=== PATIENT | male | born 1940 | race Caucasian/White ===

== ENCOUNTER 2017-11-14 07:05 | Emergency (ER) | payer MEDICARE ==
[2017-11-14 07:32] LABS: #Basophils 0.1 thou/uL (0.0-0.2); %Eosinophils 0.1 % (0.0-10.0); Red Blood Cell (RBC) Count 4.21 mill/uL (4.70-6.10); White Blood Cell (WBC) Count 9.6 thou/uL (4.8-10.8)
[2017-11-14 07:37] LABS: #Lymphocytes 1.5 thou/uL (1.20-3.40); #Monocytes 0.9 thou/uL (0.11-0.59); #Neutrophils 7.1 thou/uL (1.40-6.50); %Basophils 0.6 % (0.0-1.0); %Lymphocytes 15.4 % (21.0-51.0); %Monocytes 9.6 % (0.0-10.0); %Neutrophils 74.3 % (42.0-75.0); Hemoglobin 13.7 g/dL (14.0-18.0); Mean Corpuscular HGB CONC 32.9 g/dL (32.0-36.0); Mean Corpuscular Hemoglobin 32.5 pg (27.0-31.0); Mean Corpuscular Volume 98.8 fL (78.0-98.0); Platelet Count 216 thou/uL (130-400); RBC Distribution Width 12.8 % (11.5-14.5)
[2017-11-14 07:45] LABS: INR-International Normal Ratio 1.2; PTT 29.7 SEC (22.9-36.1); Prothrombin Time 14.9 SEC (12.0-14.7)
[2017-11-14 07:50] LABS: CKMB 4.2 ng/mL (0-6.6); Troponin I 0.019 ng/mL (< 0.028)
[2017-11-14 07:51] LABS: ALT (SGPT) 11 U/L (8-55); AST (SGOT) 21 U/L (5-34); Acetaminophen Less than 6.0 mcg/mL (10.0-30.0); Albumin 3.8 g/dL (3.4-4.8); Alcohol Less than 10 mg/dL (Less than 10); Alkaline Phosphatase 71 U/L (40-150); Anion Gap 19 mmol/L (10-20); BUN (Urea Nitrogen) 15 mg/dL (8.4-25.7); Bilirubin, Total 0.9 mg/dL (0.2-1.2); CK (CPK) 147 U/L (30-200); Calc. Creatinine Clearance 0 mL/min (70-130); Calcium 9.1 mg/dL (7.8-10.44); Carbon Dioxide 23 mmol/L (23-31); Chloride 101 mmol/L (98-107); Estimated GFR-MDRD 69; Globulin 2.8 g/dL (2.4-3.5); Glucose 157 mg/dL (83-110); Potassium 4.5 mmol/L (3.5-5.1); Protein, Total 6.6 g/dL (5.8-8.1); Salicylate Less than 8.0 mg/dL (15.0-30.0); Sodium 138 mmol/L (136-145)
[2017-11-14 08:25] LABS: Bilirubin Small (Negative); Blood, Urine Trace (Negative); Clarity Clear (Clear); Glucose, Urine (Dipstick) Negative (Negative); Leukocyte Negative (Negative); Nitrite Negative (Negative); Protein, Urine (Dipstick) Trace mg/dL (Neg-Trace); Urobilinogen 0.2 mg/dL (0.2-1.0)
[2017-11-14 08:27] LABS: Amphetamine Not Detected (NotDetected); Barbiturates Screen Not Detected (NotDetected); Benzodiazepine Screen Not Detected (NotDetected); Cocaine Metabolite Screen Not Detected (NotDetected); Medtox Control Line Valid? VALID (VALID); Methadone Not Detected (NotDetected); Methamphetamine Not Detected (NotDetected); Opiate Screen Not Detected (NotDetected); Oxycodone Screen Not Detected (NotDetected); Phencyclidine (PCP) Not Detected (NotDetected); THC/Cannabinoid Screen Not Detected (NotDetected); Tricyclic Screen Not Detected (NotDetected)
[2017-11-14 08:28] LABS: Specific Gravity, Urine 1.024 (1.002-1.036)
[2017-11-14 08:35] LABS: Bacteria/HPF Rare-Few HPF (None Seen); Other Casts/LPF 7-10 MIXED CASTS LPF (0-3 Hyaline); RBC/HPF 0-3 HPF (0-3); WBC/HPF None Seen HPF (0-3)
[2017-11-14] MEDS ORDERED: Metoprolol Tartrate 5 MG/5 ML VIAL ONE ×2 (08:38→09:00)
--- NOTE | 2017-11-14 08:39 | RAD ---
PA VIEW OF THE CHEST WITH 2 VIEWS OF THE LEFT RIBS: INDICATION: Fall with left-sided chest pain. FINDINGS: Lungs are clear. Heart size is within normal limits. No pneumothorax is evident. No definite displ aced left-sided rib fracture is noted. The visualized left clavicle is within normal limits. IMPRESSION: No acute abnormality. POS: [facility]
[2017-11-14] MEDS ORDERED: Adacel (T-DAP) 0.5 ML VIAL ONE (09:01)
--- NOTE | 2017-11-14 09:35 | RAD ---
FOUR VIEWS OF THE LEFT ELBOW: INDICATION: History of fall. IMPRESSION: No acute fracture or subluxation is evident. Enthesopathic change is seen off the olecranon process. No joint capsular distention is evident. Radiocapitellar alignment is within normal limits. IMPRESSION: No acute osseous abnormality. POS: [facility]
--- NOTE | 2017-11-14 09:37 | RAD ---
TWO VIEWS OF RIGHT HIP: INDICATION: History of fall with right hip pain. COMPARISON: None. 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 No acute fracture or subluxation is evident. IMPRESSION: No acute osseous abnormality. POS: [facility]
--- NOTE | 2017-11-14 09:40 | CT ---
CT OF THE BRAIN WITHOUT CONTRAST: INDICATION: History of syncope. COMPARISON: None. FINDINGS: There is mild generalized cerebral atrophy. There is mild chronic small-vessel white matter ischemic change. No acute infarct, hemorrhage, or hydrocephalus is present. 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 Septum pellucidum and third ventricle are midl ine. There is complete opacification of left maxillary sinus and a few left-sided ethmoid air cells. IMPRESSION: 1. No acute intracranial abnormality. 2. Mild chronic small-vessel and ischemic change. 3. Moderate left paranasal sinus disease. POS: [facility]
== END 2017-11-14 09:26 | disposition short-term general hospital (02) ==
LOC: MADERS 07:05
DX: S70.01XA Contusion of right hip, initial encounter (principal); R55 Syncope and collapse; I48.91 Unspecified atrial fibrillation; I10 Essential (primary) hypertension; Z87.891 Personal history of nicotine dependence; Z79.899 Other long term (current) drug therapy; W19.XXXA Unspecified fall, initial encounter
CPT/HCPCS: 70450; 80053; 80306; 80307; 81003; 81015; 82274; 82550; 82553; 83605; 83880; 84484; 85025; 85379; 85610; 85730; 87086; 90471; 90715; 93005; 94760; 96374